=== PATIENT | female | born 1970 | race Two or more races ===

== ENCOUNTER 2019-11-23 07:45 | Inpatient (IN) | payer OTHER ==
[~2019-11-23] VITALS: Ht 170.2 cm; Wt 86.2 kg
[~2019-11-23 07:45] MED LIST: CRESTOR10 MG PO; LEVO-T125 MCG PO
[2019-11-28] MEDS ORDERED: LEVO-T100 MCG PO (12:58)
[2019-12-01] MEDS ORDERED: HYOSCYAMINE0.125 M1 SL (12:16)
[2019-12-01] MEDS ORDERED: KETO10TA2 PO (12:16)
[2019-12-01] MEDS ORDERED: OXYC1TAB9 PO (12:16)
[2019-12-03] MEDS ORDERED: MONISTAT 315 GM VAG (12:32)
[2019-12-03] MEDS ORDERED: FLUCONAZOLE150 MG PO (12:32)
== END 2019-12-01 14:26 | disposition home or self-care (01) | DRG 331 ==
LOC: EDSTATUS 07:45 → ADM 07:45 → SURG 11-28 06:10 → O/R 11-28 06:10 → SURH 11-28 07:45 → SURG 11-28 18:02
PROVIDERS: ADMIT Surgery
PROC: 0DJD8ZZ Inspection of Lower Intestinal Tract, Via Natural or Artificial Opening Endoscopic (ICD-10-PCS; 2019-11-28)
PROC: 0DTN4ZZ Resection of Sigmoid Colon, Percutaneous Endoscopic Approach (ICD-10-PCS; principal; 2019-11-28 10:45)
DX: K57.32 Diverticulitis of large intestine without perforation or abscess without bleeding (principal); E03.8 Other specified hypothyroidism; J45.20 Mild intermittent asthma, uncomplicated; E78.00 Pure hypercholesterolemia, unspecified